=== PATIENT | female | born 1975 | race Caucasian/White ===

== ENCOUNTER 2019-08-08 11:03 | Emergency (ER) | payer MEDICAID, OTHER ==
[~2019-08-08] VITALS: Ht 165.1 cm; Wt 59.1 kg
[~2019-08-08 11:03] MED LIST: CARI350T PO; CARI350T27 PO; OXYC-138 PO; ZOF4T PO
[2019-08-08 11:51] LABS: URINE HCG NEGATIVE (NEG)
[2019-08-08 11:55] LABS: CLARITY,URINE SLIGHTLY CLOUDY (Clear); COLOR,URINE YELLOW (Yellow); GLUCOSE, URINE NEGATIVE (Neg); KETONES,URINE >=80 mg/dl (Neg); LEUKOCYTE ESTERASE ,URINE NEGATIVE (Neg); NITRITES, URINE NEGATIVE (Neg); OCCULT BLOOD,URINE TRACE-INTACT (Neg); PH,URINE 5.5 (4.8-8.0); PROTEIN,URINE NEGATIVE (Neg); UROBILINOGEN,URINE 0.2 E.U/dL (0.2-1.0)
[2019-08-08 11:59] LABS: URINE AMPHETAMINE SCREEN NEGATIVE (Neg); URINE BARBITUATE SCREEN NEGATIVE (Neg); URINE BENZODIAZEPINES SCREEN NEGATIVE (Neg); URINE CANNABINOID SCREEN POSITIVE (Neg); URINE COCAINE SCREEN NEGATIVE (Neg); URINE METHADONE SCREEN NEGATIVE (Neg); URINE OPIATE SCREEN NEGATIVE (Neg); URINE PHENCYCLIDINE SCREEN NEGATIVE (Neg)
[2019-08-08 12:00] LABS: BASOPHILS % (AUTO) 0.4 % (0-1); EOSINOPHILS % (AUTO) 0.1 % (0-6); HEMATOCRIT 42.7 % (35.0-45.0); HEMOGLOBIN 14.5 g/dl (12.0-16.0); LYMPHOCYTES # (AUTO) 1.5 X10'3 (1.1-4.8); LYMPHOCYTES % (AUTO) 16.9 % (21-51); MEAN CORPUSCULAR HEMOGLOBIN 31.9 PG (27.0-31.0); MEAN CORPUSCULAR VOLUME 93.7 FL (78-98); MEAN PLATELET VOLUME 8.8 FL (7.4-10.4); MONOCYTES # (AUTO) 0.6 X10'3 (0-0.9); MONOCYTES % (AUTO) 6.5 % (2-12); NEUTROPHILS # (AUTO) 6.7 X10'3 (1.8-7.7); NEUTROPHILS % (AUTO) 76.1 % (42-75); PLATELET COUNT 291 X10'3 (140-440); RED BLOOD COUNT 4.56 X10'6 (4.20-5.60); RED CELL DISTRIBUTION WIDTH 12.9 % (11.5-14.5); WHITE BLOOD COUNT 8.8 X10'3 (4.5-11.0)
--- NOTE | 2019-08-08 12:04 | NUR ---
pt denies HI/SI or thoughts of SI/HI. Also denies this history in past three months. Sitter is at pt bedside in line of sight. Room security check done and pt changed into green scrubs. pt is cooperative, quiet, and complient with care thus far.
[2019-08-08 12:05] LABS: UA COLLECTION TYPE VOIDED
[2019-08-08 12:06] LABS: MUCUS STRANDS FEW /LPF (Neg); SQUAMOUS EPITHELIAL CELL,UR MANY /LPF (FEW); TRANSITIONAL EPI CELLS,URINE FEW /HPF
[2019-08-08 12:07] LABS: BACTERIA,URINE FEW /HPF (Neg); RBC,URINE 0-2 /HPF (0-2); WBC,URINE NONE SEEN /HPF (0-4)
[2019-08-08 12:19] LABS: ALANINE AMINOTRANSFERASE 34 U/L (12-78); ALBUMIN 4.5 G/DL (3.4-5.0); ALBUMIN/GLOBULIN RATIO 1.2 (1.1-1.5); ALKALINE PHOSPHATASE 62 IU/L (46-116); ANION GAP 19 (8-16); ASPARTATE AMINO TRANSFERASE 27 U/L (10-37); BILIRUBIN,TOTAL 0.6 MG/DL (0.1-1.0); BLOOD UREA NITROGEN 14 MG/DL (7-18); BUN/CREATININE RATIO 16.1 (6.6-38.0); CALCIUM 9.2 MG/DL (8.5-10.1); CHLORIDE 99 MMOL/L (99-107); CREATININE 0.87 MG/DL (0.40-0.90); GLUCOSE 64 MG/DL (70-104); POTASSIUM 3.9 MMOL/L (3.5-5.1); SODIUM 137 MMOL/L (135-145); TOTAL PROTEIN 8.3 G/DL (6.4-8.2); eGFR 71 ML/MIN
--- NOTE | 2019-08-08 12:22 | NUR ---
DR Argueta, AT BESIDE ASSESSING PT. IN THE ROOM
--- NOTE | 2019-08-08 12:27 | NUR ---
contact number: zahraa lewis [phone]
[2019-08-08 12:29] LABS: ETHANOL < 0.010 GM/DL (0.0-0.010)
--- NOTE | 2019-08-08 12:32 | NUR ---
pt transferred to overflow bed 21
--- NOTE | 2019-08-08 12:38 | NUR ---
PATIENT AMBULATORY TO ER #21 IN OVERFLOW UNIT, ACCOMPANIED BY SIG OTHER. DR. STEINER STATES THAT PATIENT IS MEDICALLY CLEARED TO BE EVALUATED PER [facility].
[2019-08-08] MEDS ORDERED: haloperidol lactate 5mg/ml inj IM ONE (12:55)
[2019-08-08] MEDS ORDERED: diphenhydrAMINE 50 mg/ml inj IM ONE (12:55)
[2019-08-08] MEDS ORDERED: LORazepam 2 mg/ml vial IM ONE (12:55)
--- NOTE | 2019-08-08 14:40 | NUR ---
SLEEPING IN BED. RESP UNLABORED. CALM AT THIS TIME. LEFT FOR NOW.
--- NOTE | 2019-08-08 17:07 | NUR ---
PATIENT AWAKE AND TRYING TO WALK OFF UNIT. REDIRECTED TO BED AND OFFERED PHONE TO CALL SPOUSE. RESTING IN BED, RESTLESS ON AND OFF. PATIENT IS PARANOID, CRYING AND STATES SHE IS UNABLE TO GET IN CONTACT WITH AT THIS TIME.
[2019-08-08] MEDS ORDERED: nicotine 21mg patch - 24 hr TD ONE (17:40)
--- NOTE | 2019-08-08 18:39 | NUR ---
pt. sleeping at this time. leticia at [facility]. Addendum: 08/08/19 at 1909 by KAYLEN note written by mariana
[2019-08-08] MEDS ORDERED: Melatonin 3mg tablet PO SCH (21:00)
[2019-08-09] MEDS ORDERED: zolpidem 5mg tablet PO ONE (00:15)
[2019-08-09 05:59] VITALS: BP 125/78
--- NOTE | 2019-08-09 06:26 | NUR ---
pt sitting up in bed talking to on the phone. Calm and cooperative.
--- NOTE | 2019-08-09 07:01 | NUR ---
told by RN in change of shift report that pt was supposed to be going to [facility] at 0700 this morning and that she had talked to a nurse at the hospital and given them some information. This RN called [facility] office to confirm pts transfer and no one answered the phone.
--- NOTE | 2019-08-09 07:20 | NUR ---
Spoke with [facility] office and they stated pt should be picked up soon to go to [facility]. Eliceo LUX, Dr. Isidro. Pt to go to room 9799.
--- NOTE | 2019-08-09 07:42 | NUR ---
pt transferred to [facility] by concrete mixing truck driver. Escorted to transportation with security. Pts , Otf, made aware.
== END 2019-08-09 07:50 ==
LOC: EEVIPCON 11:04 → ER 11:04
DX: F31.9 Bipolar disorder, unspecified (principal); R44.1 Visual hallucinations; R45.1 Restlessness and agitation; J45.909 Unspecified asthma, uncomplicated; G89.29 Other chronic pain; F17.200 Nicotine dependence, unspecified, uncomplicated; F12.90 Cannabis use, unspecified, uncomplicated; Z98.890 Other specified postprocedural states
CPT/HCPCS: 36415; 80053; 80305; 80320; 81001; 81025; 84443; 85025; 96372; 99285; J1200; J1630; J2060; 99283

== ENCOUNTER 2019-08-15 11:37 | Emergency (ER) | payer MEDICAID ==
[~2019-08-15] VITALS: Ht 167.6 cm; Wt 63.6 kg
[2019-08-15] MEDS ORDERED: haloperidol lactate 5mg/ml inj IM ONE (11:40)
[2019-08-15] MEDS ORDERED: diphenhydrAMINE 50 mg/ml inj IM ONE (11:40)
[2019-08-15] MEDS ORDERED: LORazepam 2 mg/ml vial IM ONE (11:40)
[2019-08-15 13:04] LABS: BASOPHILS # (AUTO) 0.1 X10'3 (0-0.2); BASOPHILS % (AUTO) 0.6 % (0-1); EOSINOPHILS % (AUTO) 0.5 % (0-6); HEMOGLOBIN 13.5 g/dl (12.0-16.0); LYMPHOCYTES # (AUTO) 1.8 X10'3 (1.1-4.8); LYMPHOCYTES % (AUTO) 18.8 % (21-51); MEAN CORPUSCULAR HEMOGLOBIN 31.8 PG (27.0-31.0); MEAN CORPUSCULAR HGB CONC 33.8 g/dL (33.0-36.5); MEAN CORPUSCULAR VOLUME 94.2 FL (78-98); MEAN PLATELET VOLUME 8.6 FL (7.4-10.4); MONOCYTES # (AUTO) 0.9 X10'3 (0-0.9); MONOCYTES % (AUTO) 9.3 % (2-12); NEUTROPHILS # (AUTO) 6.8 X10'3 (1.8-7.7); NEUTROPHILS % (AUTO) 70.8 % (42-75); PLATELET COUNT 265 X10'3 (140-440); RED BLOOD COUNT 4.25 X10'6 (4.20-5.60); RED CELL DISTRIBUTION WIDTH 12.9 % (11.5-14.5); WHITE BLOOD COUNT 9.6 X10'3 (4.5-11.0)
[2019-08-15 13:17] LABS: ALANINE AMINOTRANSFERASE 37 U/L (12-78); ALBUMIN 4.2 G/DL (3.4-5.0); ALBUMIN/GLOBULIN RATIO 1.3 (1.1-1.5); ALKALINE PHOSPHATASE 55 IU/L (46-116); ANION GAP 13 (8-16); ASPARTATE AMINO TRANSFERASE 23 U/L (10-37); BILIRUBIN,TOTAL 0.3 MG/DL (0.1-1.0); BLOOD UREA NITROGEN 11 MG/DL (7-18); BUN/CREATININE RATIO 12.6 (6.6-38.0); CALCIUM 9.2 MG/DL (8.5-10.1); CHLORIDE 106 MMOL/L (99-107); CREATININE 0.87 MG/DL (0.40-0.90); ETHANOL < 0.010 GM/DL (0.0-0.010); GLUCOSE 110 MG/DL (70-104); POTASSIUM 3.2 MMOL/L (3.5-5.1); SODIUM 144 MMOL/L (135-145); TOTAL CARBON DIOXIDE 24.7 MMOL/L (24-32); TOTAL PROTEIN 7.4 G/DL (6.4-8.2); eGFR 71 ML/MIN
[2019-08-15] MEDS ORDERED: nicotine 14mg patch - 24hr TD ONE (16:00)
[2019-08-15 16:02] LABS: URINE HCG NEGATIVE (NEG)
[2019-08-15 16:05] LABS: CLARITY,URINE CLOUDY (Clear); COLOR,URINE YELLOW (Yellow); GLUCOSE, URINE NEGATIVE (Neg); KETONES,URINE >=80 mg/dl (Neg); LEUKOCYTE ESTERASE ,URINE NEGATIVE (Neg); NITRITES, URINE NEGATIVE (Neg); OCCULT BLOOD,URINE NEGATIVE (Neg); PROTEIN,URINE NEGATIVE (Neg)
[2019-08-15 16:07] LABS: UA COLLECTION TYPE CLN CATCH MIDSTREAM
[2019-08-15 16:13] LABS: MUCUS STRANDS MANY /LPF (Neg); SQUAMOUS EPITHELIAL CELL,UR MANY /LPF (FEW)
[2019-08-15 16:14] LABS: BACTERIA,URINE 2+ /HPF (Neg); RBC,URINE 0-2 /HPF (0-2); WBC,URINE 0-4 /HPF (0-4)
[2019-08-15 16:15] LABS: URINE AMPHETAMINE SCREEN NEGATIVE (Neg); URINE BARBITUATE SCREEN NEGATIVE (Neg); URINE BENZODIAZEPINES SCREEN NEGATIVE (Neg); URINE CANNABINOID SCREEN POSITIVE (Neg); URINE COCAINE SCREEN NEGATIVE (Neg); URINE METHADONE SCREEN NEGATIVE (Neg); URINE OPIATE SCREEN NEGATIVE (Neg); URINE PHENCYCLIDINE SCREEN NEGATIVE (Neg)
--- NOTE | 2019-08-15 18:15 | NUR ---
Patient report received from Yesenia RABAGO, all questions regarding care were answered.
--- NOTE | 2019-08-15 18:35 | NUR ---
Reported off to [facility].
[2019-08-15] MEDS ORDERED: acetaminophen w/codeine (30MG) #3 tablet PO ONE (19:30)
--- NOTE | 2019-08-15 19:56 | NUR ---
Shift report received from Yesenia RABAGO ,
[2019-08-15] MEDS ORDERED: temazepam 15mg capsule PO ONE ×2 (22:05→22:15)
[2019-08-16] MEDS ORDERED: diphenhydrAMINE 25mg capsule PO ONE (02:30)
[2019-08-16 05:27] VITALS: BP 102/68
[2019-08-16] MEDS ORDERED: HYDR50CA5 PO ×2 (05:43→06:19)
[2019-08-16] MEDS ORDERED: ZOLP10TA5 PO ×2 (05:43→06:19)
[2019-08-16] MEDS ORDERED: LAMO25TA5 PO ×2 (05:43→06:19)
[2019-08-16] MEDS ORDERED: OMEP-50 PO ×2 (05:43→06:19)
[2019-08-16] MEDS ORDERED: zolpidem 5mg tablet PO PRN (06:30)
--- NOTE | 2019-08-16 06:30 | NUR ---
Assumed care of patient, patient requesting to use phone to call . Educated patient that she will be able to use the phone after 0800. Patient is ok with waiting until 0800.
--- NOTE | 2019-08-16 06:54 | NUR ---
Gave patient report to Nga Rn , all questions regarding care were discussed.
[2019-08-16] MEDS: hydrOXYzine 25 MG tablet PO PRN ×2 (07:20→13:47)
[2019-08-16] MEDS ORDERED: lamoTRIgine 25mg tablet PO SCH (08:00)
[2019-08-16] MEDS ORDERED: pantoprazole 40mg Tablet.DR PO SCH (08:00)
--- NOTE | 2019-08-16 08:15 | NUR ---
Patient requesting to use phone to call on the phone. Phone provided to patient.
--- NOTE | 2019-08-16 08:30 | NUR ---
Patient spoke to on the phone, no issues. Patients called nursing station, asked if patient was going home today. Patient had stated to the that she was going to be going home. Informed that this was not the correct information, there has not been any set plan as of yet for placement. Verified with if patient is taking Soma, Home med rec recorded that this medication is no longer being taken, also states that patient is not taking at home and states that she has not needed Soma. Patient has been requesting the medication. states that he will plan on coming in to see patient today.
--- NOTE | 2019-08-16 10:21 | NUR ---
Patient is not in restraints this shift.
--- NOTE | 2019-08-16 10:49 | NUR ---
Patient requesing to use phone to make a phone call, call was not answered. Patient is calm and in bed.
--- NOTE | 2019-08-16 11:10 | NUR ---
Patient states she is trying really hard to learn how to be patient. Encouraged patient to read her bible on her bedside table. Patient states that she feels bad for writing in the bible that is not hers. Patient is reassured that she can keep the bible and that it is now hers. Patient states that she keeps notes in the bible and her other books that she likes to read. Encouraged patient to keep reading and highlighting important information to reflect back on. Patient is calm and responds well to encouragement.
--- NOTE | 2019-08-16 12:07 | NUR ---
Received call from [employer]. Information given.
--- NOTE | 2019-08-16 12:14 | NUR ---
Breaking Primary RN pt is in bed visiting with her , no anxiety apparent, they are quietly talking
--- NOTE | 2019-08-16 12:41 | NUR ---
at bedside. No issues at this time.
--- NOTE | 2019-08-16 12:41 | NUR ---
Re: Restraints. Per Unit Tech that was working 08/15/19 patient was in restraints up until approx. 1700. Patient was out of restraints before the change of shift at 1800.
--- NOTE | 2019-08-16 13:10 | NUR ---
Patient accepted with [facility], [place]. Patient and notified.
--- NOTE | 2019-08-16 13:38 | NUR ---
Clothing provided to patient for discharge to [facility].
--- NOTE | 2019-08-16 13:49 | NUR ---
Atarax given to patient for anxiety.
--- NOTE | 2019-08-16 14:00 | NUR ---
Latricia Hurd staff here to transport patient to [place].
--- NOTE | 2019-08-16 14:02 | NUR ---
Patient discharged, walked out independently with staff, security and transport. All belongings taken home by , new clothing provided to patient. No new issues at this current time.
== END 2019-08-16 14:00 ==
LOC: ER 11:37
DX: F31.89 Other bipolar disorder (principal); F29 Unspecified psychosis not due to a substance or known physiological condition; J45.909 Unspecified asthma, uncomplicated; G89.29 Other chronic pain; F10.99 Alcohol use, unspecified with unspecified alcohol-induced disorder; F12.90 Cannabis use, unspecified, uncomplicated; Z88.6 Allergy status to analgesic agent; Z79.899 Other long term (current) drug therapy; Y90.9 Presence of alcohol in blood, level not specified
CPT/HCPCS: 36415; 80053; 80305; 80320; 81001; 81025; 84443; 85025; 96372; 99285; J1200; J1630; J2060; Q0163; Z7610

== ENCOUNTER 2019-09-01 14:05 | Emergency (ER) | payer MEDICAID ==
[~2019-09-01] VITALS: Ht 162.6 cm; Wt 59.1 kg
[~2019-09-01 14:05] MED LIST changes: -CARI350T PO; -CARI350T27 PO; +HYDR50CA5 PO; +LAMO25TA5 PO; +OMEP-50 PO; -OXYC-138 PO; -ZOF4T PO; +ZOLP10TA5 PO
--- NOTE | 2019-09-01 16:51 | NUR ---
PATIENT STATES SHE HAS BEEN FEELING WEAK AND UNABLE TO PERFORM ADL SINCE SHE WAS DISCHARGED FROM HOSPITAL 2 DAYS AGO. HX PSYCH DISORDER.
--- NOTE | 2019-09-01 17:22 | NUR ---
, LEENA REED CALLED IN FOR CONDITION REPORT[facility] AND HAS BEEN UNABLE TO SLEEP OR CARE FOR SELF. LEENA STATES THAT SHE NEEDS INPATIENT TREATMENT BECAUSE HE IS UNABLE TO CARE FOR HER IN HER PRESENT CONDITION. PHONE NUMBER IS [phone].
[2019-09-01] MEDS ORDERED: diphenhydrAMINE 25mg capsule PO ONE (17:25)
[2019-09-01] MEDS ORDERED: LORazepam 1 MG tablet PO ONE (17:50)
[2019-09-01 17:52] LABS: BASOPHILS # (AUTO) 0.1 X10'3 (0-0.2); BASOPHILS % (AUTO) 0.8 % (0-1); EOSINOPHILS # (AUTO) 0.2 X10'3 (0-0.9); EOSINOPHILS % (AUTO) 1.4 % (0-6); HEMATOCRIT 40.2 % (35.0-45.0); HEMOGLOBIN 13.6 g/dl (12.0-16.0); LYMPHOCYTES # (AUTO) 1.8 X10'3 (1.1-4.8); MEAN CORPUSCULAR HEMOGLOBIN 31.8 PG (27.0-31.0); MEAN CORPUSCULAR HGB CONC 33.9 g/dL (33.0-36.5); MEAN CORPUSCULAR VOLUME 93.8 FL (78-98); MEAN PLATELET VOLUME 7.8 FL (7.4-10.4); MONOCYTES # (AUTO) 0.6 X10'3 (0-0.9); MONOCYTES % (AUTO) 4.8 % (2-12); NEUTROPHILS # (AUTO) 9.9 X10'3 (1.8-7.7); PLATELET COUNT 343 X10'3 (140-440); RED BLOOD COUNT 4.28 X10'6 (4.20-5.60); WHITE BLOOD COUNT 12.6 X10'3 (4.5-11.0)
[2019-09-01 18:03] LABS: ALANINE AMINOTRANSFERASE 31 U/L (12-78); ALBUMIN 3.9 G/DL (3.4-5.0); ALBUMIN/GLOBULIN RATIO 1.3 (1.1-1.5); ALKALINE PHOSPHATASE 60 IU/L (46-116); ANION GAP 8 (8-16); ASPARTATE AMINO TRANSFERASE 14 U/L (10-37); BILIRUBIN,TOTAL 0.2 MG/DL (0.1-1.0); BLOOD UREA NITROGEN 9 MG/DL (7-18); BUN/CREATININE RATIO 10.6 (6.6-38.0); CALCIUM 9.5 MG/DL (8.5-10.1); CHLORIDE 106 MMOL/L (99-107); CREATININE 0.85 MG/DL (0.40-0.90); GLUCOSE 126 MG/DL (70-104); POTASSIUM 3.3 MMOL/L (3.5-5.1); SODIUM 140 MMOL/L (135-145); TOTAL CARBON DIOXIDE 25.7 MMOL/L (24-32); eGFR 73 ML/MIN
[2019-09-01 18:12] LABS: ETHANOL < 0.010 GM/DL (0.0-0.010)
[2019-09-01 18:25] LABS: URINE HCG NEGATIVE (NEG)
[2019-09-01 18:32] LABS: URINE AMPHETAMINE SCREEN NEGATIVE (Neg); URINE BARBITUATE SCREEN NEGATIVE (Neg); URINE BENZODIAZEPINES SCREEN NEGATIVE (Neg); URINE CANNABINOID SCREEN POSITIVE (Neg); URINE COCAINE SCREEN NEGATIVE (Neg); URINE METHADONE SCREEN NEGATIVE (Neg); URINE OPIATE SCREEN NEGATIVE (Neg); URINE PHENCYCLIDINE SCREEN NEGATIVE (Neg)
[2019-09-01] MEDS ORDERED: GABA-530 PO (18:55)
[2019-09-01] MEDS ORDERED: LITH300C PO (18:55)
[2019-09-01] MEDS ORDERED: PROP10TA10 PO (18:55)
[2019-09-01] MEDS ORDERED: ARIP400S3 IM (18:57)
--- NOTE | 2019-09-01 19:11 | NUR ---
Patient received from main ER in street clothes, no belonging list completed. Patient changed in to green scrubs at this time, belongings inventoried and secured. Documentation in chart.
--- NOTE | 2019-09-01 19:35 | NUR ---
Patient walking back and forth from bed to nurses station. Adjusting bed with out assistance, ate evening meal without assistance. Called from hospital provided phone and requested magazines to read.
[2019-09-01] MEDS ORDERED: hydrOXYzine 25 MG tablet PO PRN (20:15)
--- NOTE | 2019-09-01 20:32 | NUR ---
packet has been faxed to [facility] office
[2019-09-01] MEDS ORDERED: diphenhydrAMINE 25mg capsule PO PRN (20:45)
[2019-09-01] MEDS ORDERED: LORazepam 1 MG tablet PO PRN (20:45)
[2019-09-01] MEDS: gabapentin 100mg capsule PO SCH (21:00)
[2019-09-01] MEDS ORDERED: lithium carbonate 150mg capsule PO SCH (21:00)
--- NOTE | 2019-09-01 21:30 | NUR ---
Patient up and down frequently in and out of bed, adjusting bed walking to and from nurses station, repeatedly confirming that she will be getting her medications. Patient assured that the she will be getting all of her regular medications. Reviewed medications, time and dose with patient at this time.
[2019-09-01] MEDS: acetaminophen 325mg tablet PO PRN (21:52)
--- NOTE | 2019-09-01 22:00 | NUR ---
Patient requesting medication for pain. When asked where the patient is having pain she states "all over, from sitting in the wheelchair" Patient given 650mg tylenol per MD order
--- NOTE | 2019-09-01 23:30 | NUR ---
Patient sleeping at this time
--- NOTE | 2019-09-02 01:30 | NUR ---
Patient up to bathroom to "wash hands"
--- NOTE | 2019-09-02 02:30 | NUR ---
Patient lying in bed, turning from side to side, sitting up, straightening blankets.
--- NOTE | 2019-09-02 03:41 | NUR ---
Patient has been restless, up and down out of bed with multiple requests. Asked for more benadryl informed that she cannot have anymore tonight. Requested chapstick, none is available at this time. Stated that her blankets are "all messed up" and she can't straightened them. Patient provided with a warm blanket and assisted with remaking her bed.
--- NOTE | 2019-09-02 04:28 | NUR ---
Patient continues to be restless, up to bathroom and pacing around bed
--- NOTE | 2019-09-02 05:09 | NUR ---
Patient given atarax due to increasing agitation
[2019-09-02 05:50] VITALS: BP 122/76
--- NOTE | 2019-09-02 06:40 | NUR ---
Patient with her eyes closed, laying supine. No distress observed. Continue to monitor.
[2019-09-02] MEDS ORDERED: pantoprazole 40mg Tablet.DR PO SCH (07:30)
[2019-09-02] MEDS: gabapentin 100mg capsule PO SCH ×2 (08:00→13:00)
[2019-09-02] MEDS ORDERED: propranolol 10mg tablet PO SCH (08:00)
--- NOTE | 2019-09-02 08:15 | NUR ---
Patient eating breakfast. No distress observed. Patient comes to nurses station often and asking for things like chapstick or has a simple question. Continue to monitor.
--- NOTE | 2019-09-02 10:55 | NUR ---
Patient's at bedside. No distress observed. Patient and talking. Continue to monitor.
--- NOTE | 2019-09-02 13:39 | NUR ---
Patient laying in bed supine. No distress observed. [facility] Continue to monitor.
[2019-09-02] MEDS: acetaminophen 325mg tablet PO PRN (13:49)
--- NOTE | 2019-09-02 15:00 | NUR ---
Pt sitting up on bed talking with her on the phone, awaiting d/c home.
[2019-09-02] MEDS ORDERED: CLON-527 PO (15:03)
[2019-09-23] MEDS ORDERED: ARIPIPRAZOLE 400 MG IM SCH (08:00)
== END 2019-09-02 15:37 ==
LOC: ER 14:05
DX: F29 Unspecified psychosis not due to a substance or known physiological condition (principal); R53.1 Weakness; R25.2 Cramp and spasm; J45.909 Unspecified asthma, uncomplicated; G89.29 Other chronic pain; F31.9 Bipolar disorder, unspecified; F12.90 Cannabis use, unspecified, uncomplicated; Z98.890 Other specified postprocedural states; Z91.048 Other nonmedicinal substance allergy status; Z79.899 Other long term (current) drug therapy
CPT/HCPCS: 36415; 80053; 80305; 80320; 81025; 83735; 85025; 93005; 99285; Q0163; Z7610

== ENCOUNTER 2023-07-22 14:06 | Emergency (ER) | payer MEDICAID ==
[~2023-07-22] VITALS: Ht 162.6 cm; Wt 72.7 kg
[~2023-07-22 14:06] MED LIST changes: +ARIP400S3 IM; +CLON-527 PO; +GABA-530 PO; +LITH300C PO; -OMEP-50 PO; +OMEP20CA16 PO; +PROP10TA10 PO
[2023-07-22 14:14] VITALS: BP 126/72; PULSE 77; RESP 16; TEMP 98.1; O2SAT 99
[2023-07-22 15:39] LABS: BILIRUBIN,URINE NEGATIVE (Neg); CLARITY,URINE CLOUDY (Clear); COLOR,URINE YELLOW (Yellow); GLUCOSE, URINE NEGATIVE (Neg); KETONES,URINE NEGATIVE (Neg); LEUKOCYTE ESTERASE ,URINE NEGATIVE (Neg); NITRITES, URINE NEGATIVE (Neg); OCCULT BLOOD,URINE NEGATIVE (Neg); PROTEIN,URINE NEGATIVE (Neg); UROBILINOGEN,URINE 0.2 E.U/dL (0.2-1.0)
[2023-07-22 15:41] LABS: UA COLLECTION TYPE CLN CATCH MIDSTREAM
[2023-07-22 15:47] LABS: BACTERIA,URINE 2+ /HPF (Neg); RBC,URINE 0-2 /HPF (0-2); SQUAMOUS EPITHELIAL CELL,UR FEW /LPF (FEW); WBC,URINE 0-4 /HPF (0-4)
--- NOTE | 2023-07-22 17:30 | NUR ---
PT NIL [id number]
== END 2023-07-22 21:25 | disposition left against medical advice (07) ==
LOC: ER 14:06
DX: R10.9 Unspecified abdominal pain (principal); Z53.21 Procedure and treatment not carried out due to patient leaving prior to being seen by health care provider
CPT/HCPCS: 81001; 99281

== ENCOUNTER 2023-10-20 09:20 | Emergency (ER) | payer MEDICAID ==
[~2023-10-20] VITALS: Ht 162.6 cm; Wt 72.7 kg
[2023-10-20 09:26] VITALS: TEMP 98.3
[2023-10-20 09:49] LABS: BASOPHILS # (AUTO) 0.2 X10'3 (0-0.2); EOSINOPHILS # (AUTO) 0.2 X10'3 (0-0.9); EOSINOPHILS % (AUTO) 1.9 % (0-6); HEMATOCRIT 41.2 % (35.0-45.0); HEMOGLOBIN 13.8 g/dl (12.0-16.0); LYMPHOCYTES # (AUTO) 2.3 X10'3 (1.1-4.8); LYMPHOCYTES % (AUTO) 28.4 % (21-51); MEAN CORPUSCULAR HEMOGLOBIN 30.7 PG (27.0-31.0); MEAN CORPUSCULAR HGB CONC 33.6 g/dL (33.0-36.5); MEAN CORPUSCULAR VOLUME 91.3 FL (78-98); MEAN PLATELET VOLUME 7.1 FL (7.4-10.4); MONOCYTES # (AUTO) 0.5 X10'3 (0-0.9); MONOCYTES % (AUTO) 6.5 % (2-12); NEUTROPHILS # (AUTO) 4.9 X10'3 (1.8-7.7); NEUTROPHILS % (AUTO) 61.2 % (42-75); PLATELET COUNT 396 X10'3 (140-440); RED BLOOD COUNT 4.51 X10'6 (4.20-5.60); RED CELL DISTRIBUTION WIDTH 12.8 % (11.5-14.5)
[2023-10-20 10:13] LABS: ALANINE AMINOTRANSFERASE 40 U/L (12-78); ALBUMIN 4.2 G/DL (3.4-5.0); ALBUMIN/GLOBULIN RATIO 1.1 (1.1-1.5); ALKALINE PHOSPHATASE 77 IU/L (46-116); ANION GAP 13 (8-16); ASPARTATE AMINO TRANSFERASE 17 U/L (10-37); BILIRUBIN,TOTAL 0.5 MG/DL (0.1-1.0); BLOOD UREA NITROGEN 15 MG/DL (7-18); CALCIUM 9.4 MG/DL (8.5-10.1); CHLORIDE 103 MMOL/L (99-107); CREATININE 1.07 MG/DL (0.40-0.90); GLUCOSE 110 MG/DL (70-104); POTASSIUM 3.7 MMOL/L (3.5-5.1); SODIUM 140 MMOL/L (135-145); TOTAL CARBON DIOXIDE 24.5 MMOL/L (24-32); TOTAL PROTEIN 7.9 G/DL (6.4-8.2); eCRCL 56 ML/MIN; eGFR 55 ML/MIN
[2023-10-20 10:22] LABS: FREE T4 (FREE THYROXINE) 1.18 NG/DL (0.73-1.40); MAGNESIUM 2.2 MG/DL (1.5-2.4); PRO BRAIN NATRIURETIC PEPTIDE < 30 PG/ML (0-125)
[2023-10-20] MEDS ORDERED: mag hydrox/Alum hydrox/simeth 30ml oral suspension PO ONE (10:55)
[2023-10-20] MEDS ORDERED: normal saline 1000ML IV soln IVB ONE (10:55)
[2023-10-20] MEDS ORDERED: LIDOcaine Viscous 15ml cup MM ONE (10:55)
[2023-10-20 11:15] LABS: URINE AMPHETAMINE SCREEN NEGATIVE (Neg); URINE BARBITUATE SCREEN NEGATIVE (Neg); URINE BENZODIAZEPINES SCREEN NEGATIVE (Neg); URINE CANNABINOID SCREEN POSITIVE (Neg); URINE COCAINE SCREEN NEGATIVE (Neg); URINE METHADONE SCREEN NEGATIVE (Neg); URINE OPIATE SCREEN NEGATIVE (Neg); URINE PHENCYCLIDINE SCREEN NEGATIVE (Neg)
[2023-10-20 12:26] VITALS: BP 116/77; PULSE 56; RESP 16; O2SAT 98
== END 2023-10-20 12:29 | disposition home or self-care (01) ==
LOC: ER 09:21
DX: R07.9 Chest pain, unspecified (principal); R53.1 Weakness; J45.909 Unspecified asthma, uncomplicated; G89.29 Other chronic pain; M54.9 Dorsalgia, unspecified; F12.10 Cannabis abuse, uncomplicated; Z79.899 Other long term (current) drug therapy; Z88.8 Allergy status to other drugs, medicaments and biological substances
CPT/HCPCS: 36415; 71045; 80053; 80305; 83735; 83880; 84439; 84443; 84484; 85025; 85379; 93005; 96360; 99285; J7030